=== PATIENT | female | born 1990 | race Caucasian/White ===

== ENCOUNTER 2018-04-20 12:12 | Emergency (ER) | payer MEDICAID ==
[2018-04-20] MEDS ORDERED: Sodium Chloride 0.9% 1,000 ML IV ONE (12:53)
[2018-04-20] MEDS ORDERED: Morphine 2 MG/ML Syringe IVPUSH ONE (12:53)
[2018-04-20] MEDS ORDERED: Ondansetron 4 MG/2 ML SDV IVPUSH ONE (12:53)
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
--- NOTE | 2018-04-21 08:19 | US ---
Abdominal ultrasound: Multiple real-time images were obtained of the abdomen. Comparison: No prior abdominal imaging. Findings: Liver shows no focal parenchymal abnormality. Gallbladder contains no shadowing gallstones. No gallbladder wall thickening or biliary duct dilatation is seen. Kidneys show no hydronephrosis or mass. Right kidney length is 11.3 cm, left kidney length is 11.7 cm. Spleen size measures at the upper limits of normal at 13.5 cm. Aorta shows no aneurysm. Pancreas is incompletely seen. Visualized portions of the pancreas are within normal limits. Aorta shows no aneurysm. Inferior vena cava is patent. Portal vein shows normal hepatopedal flow. Impression: 1. Spleen size at the upper limits of normal. 2. Nothing acute is seen on abdominal ultrasound exam. Diagnostic code #2 I agree with preliminary report issued by [facility] ([facility] report finalized on 04/20/18, 7:16 PM Central Time)
--- NOTE | 2018-04-22 14:10 | US ---
Obstetrical ultrasound: Multiple real-time images were obtained. Comparison: No prior ultrasound for current . Dates: LMP: ? Current ultrasound: NAI 10/21/18, gestational age 13 weeks 5 days presentation: Mobile Placenta: Posterior Amniotic fluid: ALEXIS 12.1 cm Measurements: BPD: 2.19 cm - 13 weeks 5 days Head circumference: 8.28 cm - 13 weeks 5 days Abdominal circumference: 6.82 cm - 13 weeks 4 days Femur length: 1.23 cm - 13 weeks 5 days Estimated weight: 78 g (0 lbs. 3 oz.), estimated weight of 21st percentile for age by current ultrasound Heart rate: 147 bpm Cervical length: 3.5 cm Maternal adnexa: Within normal limits Other findings: Slight increased vascularity seen within the posterior uterine wall most likely due to myometrial varicosity. Impression: 1. Single intrauterine gestation. Dates as noted above. 2. Increased vascularity within the posterior uterine wall most likely due to myometrial varicosity. 3. No other complicating process is seen by ultrasound at this time. Diagnostic code #3 I agree with preliminary report issued by [facility] ([facility] report finalized on 04/20/18, 7:10 PM Central Time)
== END 2018-04-20 18:38 | disposition home or self-care (01) ==
LOC: JD.ED 12:12
DX: R10.84 Generalized abdominal pain (principal); R11.2 Nausea with vomiting, unspecified; Z33.1 Pregnant state, incidental; Z91.018 Allergy to other foods; Z3A.13 13 weeks gestation of pregnancy
CPT/HCPCS: 36415; 76700; 76801; 80053; 81001; 81025; 83690; 85025; 96361; 96374; 96375; 99284; J2270; J2405; J7040